=== PATIENT | female | born 1950 | race Two or more races ===

== ENCOUNTER 2018-09-11 18:24 | Emergency (ER) | payer OTHER, BC ==
[~2018-09-11] VITALS: Ht 165.1 cm; Wt 81.6 kg
[2018-09-11 18:44] VITALS: Ht 165.1 cm; Wt 81.6 kg
[2018-09-11 19:44] VITALS: BP 139/80
== END 2018-09-11 19:44 | disposition home or self-care (01) ==
LOC: ED 18:24
DX: H11.31 Conjunctival hemorrhage, right eye (principal)

== ENCOUNTER 2018-12-25 06:09 | Day surgery (SDC) | payer OTHER, BC ==
[~2018-12-25] VITALS: Ht 165.1 cm; Wt 78.5 kg
[2018-12-25 06:33] VITALS: BP 123/70
[2018-12-25 11:38] VITALS: BP 120/74
== END 2018-12-25 09:55 | disposition home or self-care (01) ==
LOC: GI 06:09 → OR 07:30 → GI 09:55
DX: K29.50 Unspecified chronic gastritis without bleeding (principal); K21.0 Gastro-esophageal reflux disease with esophagitis; K31.89 Other diseases of stomach and duodenum; M19.90 Unspecified osteoarthritis, unspecified site; Z79.899 Other long term (current) drug therapy; Z79.01 Long term (current) use of anticoagulants; Z87.59 Personal history of other complications of pregnancy, childbirth and the puerperium; Z98.890 Other specified postprocedural states
CPT/HCPCS: 43235; J1200; J1610; J2250; J2310; J3010; J3490

== ENCOUNTER 2019-02-03 11:14 | Inpatient (IN) | payer OTHER, BC ==
[~2019-02-03] VITALS: Ht 165.1 cm; Wt 74.9 kg
[2019-02-03 11:15] VITALS: Ht 165.1 cm; Wt 74.9 kg
--- NOTE | 2019-02-03 11:21 | NUR ---
PT PLACED ON BIPAP 10/5 BACK UP RATE-12. FIO2 .90. SATS ARE 96% AFTER PT PLACED ON BIPAP. DR MUSE AT BEDSIDE. PT SAYS SHE HAS PNEUMOTHORAX ON LEFT SIDE. PT APPEARS TO HAVE DRAIN ON LEFT SIDE AND IS BEING TREATED FOR IT. WILL DO ABG SOON. NO SKIN BREAKDOWN. TIGHT SEAL WITH BIPAP MASK.
--- NOTE | 2019-02-03 11:25 | NUR ---
PER MEDIC PT WAS AT WHEN AND STARTED TO FEEL SOB AROUND 0900. PT RECENTLY HAD A PNUEMOTHORAX SURGERY SUNDAY AT [facility] [place]. PER MEDIC PT HAS HX OF LUNG CANCER. PER MEDIC HOME HEALTH NURSE WAS AT HOME AND PT WAS STATING AT 52% AND WAS NOT ABLE TO INCREASE SPAO2. PER PT SHE IS ON HOME O2 BUT DOES NOT KNOW THE LITERS. PER PT SHE ALSO HAS PNUEMONIA. PT STS THAT SHE IS HAVING STERNAL PRESSURE CHEST PAIN AT THIS TIME THAT IS NON RADIATING. PT DENIES ANY NUMBNESS OR TINGLING. PER MEDIC BG 360. MEDIC PLACED PT ON CPAP. NOTED CHELA WITH CHEST TUBE FROM SURGERY PNUEMOTHORAX. PT STS THAT SHE IS HAVING A HEADAHCE AT THIS TIME. RESP AT BEDSIDE. DR. MUSE AT BEDSIDE. VSS. WILL CONTINUE TO MONITOR.
[2019-02-03 11:29] LABS: BASOPHIL % 0.1 % (0-2); PLATELET COUNT 291 x10^3mcL (130-400)
[2019-02-03 11:37] LABS: RED CELL DISTRIBUTION WIDTH 15.3 % (11.5-14.5)
[2019-02-03 11:55] LABS: CALCIUM 10.3 mg/dL (8.5-10.1); CARBON DIOXIDE 26.1 mmol/L (21-32); CREATININE SERUM 1.1 mg/dL (0.6-1.0); POTASSIUM SERUM 4.8 mmol/L (3.5-5.1)
--- NOTE | 2019-02-03 11:55 | NUR ---
DR. MUSE AT BEDSIDE FOR NUMBING SITE FOR CHEST TUBE.
--- NOTE | 2019-02-03 11:57 | NUR ---
PT MEDICATED WITH PROPOFOL 50MG IVP GIVEN BY DR MUSE
[2019-02-03 12:00] LABS: ALBUMIN 3.4 g/dL (3.4-5.0); BILIRUBIN TOTAL 0.6 mg/dL (0.20-1.00)
[2019-02-03 12:02] LABS: TOTAL PROTEIN, SERUM 8.3 g/dL (6.4-8.2)
--- NOTE | 2019-02-03 12:04 | NUR ---
CHEST TUBE INSERTION COMPLETED DR MUSE SUTURING SITE. PT REMAINS ON FULL CM VSS SINUS TACH. WILL CONTINUE TO MONITOR
--- NOTE | 2019-02-03 12:15 | NUR ---
XRAY AT [facility].
--- NOTE | 2019-02-03 12:23 | NUR ---
CHEST TUBE IN PLACE SUCTION IS APPLIED BUBBLING NOTED IN CHAMBER. NO OUTPUT NOTED AT THIS TIME. VSS. WILL CONTINUE TO MONITOR.
--- NOTE | 2019-02-03 12:43 | NUR ---
LAB AT [facility]. RESP AT BEDSIDE FOR BI PAP REMOVAL.
--- NOTE | 2019-02-03 12:47 | NUR ---
DR. MUSE AT BEDSIDE DUE TO PT BEING TAKEN ODD BI PAP.
--- NOTE | 2019-02-03 12:55 | NUR ---
PT ABLE TO ANSWER QUESTIONS. PT IS ALERT AND ORIENTED, SPEAKING IN CLEAR AND FULL SENTENCES. SON AT BEDSIDE. RESPIRATIONS ARE LABORED DR. MUSE MADE AWARE. PT ON 5L NC AT THIS TIME. WILL CONTINUE TO MONITOR. RESP COMING WITH POSITIVE PRESSURE MASK.
--- NOTE | 2019-02-03 13:05 | NUR ---
RESP AT BEDSIDE FOR HIGH PRESSURE MASK.
--- NOTE | 2019-02-03 13:15 | NUR ---
HIGH FLOW O2 PLACED BY RESPIRATORY. VSS. WILL CONTINUE TO MONITOR.
--- NOTE | 2019-02-03 13:15 | NUR ---
PLACED ON HIGH FLOW NC 35L 50% FIO2. SPO2:93% INCREASED TO 45L 55% FIO2 DUE TO DESATURATION. SPO2:93%
--- NOTE | 2019-02-03 13:38 | NUR ---
PT STS THAT SHE FEELS BETTER. PT STS THAT SHE HAS MILD PAIN. DR. MUSE MADE AWARE. VSS. PT ON HIGH FLOW NC O2. WILL CONTINUE TO MONITOR.
[2019-02-03] MEDS ORDERED: AMITRIPTYLINE H25 MG PO (13:51)
[2019-02-03] MEDS ORDERED: PANTOPRAZOLE SO40 M1 PO (13:51)
[2019-02-03] MEDS ORDERED: APAP/HYDROCODON1 T13 (13:51)
--- NOTE | 2019-02-03 14:07 | NUR ---
PT BEING TRANSPORTED TO ICU WITH NURSE WHITLEY URBANO AND EMT CHRIS. CHOWDHURY
[2019-02-03 14:12] LABS: CHOLESTEROL/HDL RATIO 4.1; MAGNESIUM 2.1 mg/dL (1.8-2.4); PHOSPHOROUS 3.5 mg/dL (2.5-4.9)
[2019-02-03 14:19] LABS: FREE T4 1.24 ng/dL (0.76-1.46); FREE THYROXINE INDEX 3.2 ug/dL (1.4-4.5); T4(THYROXINE) 10.6 ug/dL (4.7-13.3)
[2019-02-03 14:22] LABS: T3 TOTAL 0.82 ng/mL
[2019-02-03 14:38] VITALS: BP 122/67
[2019-02-03 15:47] VITALS: BP 111/69
[2019-02-03 17:00] VITALS: BP 111/69
--- NOTE | 2019-02-03 19:00 | NUR ---
REPORT GIVEN TO MEJIA URBANO. ALL QUESTIONS ANSWERED AND ADDRESSED. RN TO ASSUME CARE.
--- NOTE | 2019-02-03 19:05 | NUR ---
RECEIVED REPORT FROM ALISSA URBANO. ASSUMING ALL CARE
[2019-02-03 19:20] VITALS: BP 113/60
--- NOTE | 2019-02-03 19:20 | NUR ---
RECEIVED PT SITTING UP IN BED. PT IS A/OX4. SPEECH IS CLEAR. ABLE TO MAKE NEEDS KNOWN/FOLLOW SIMPLE COMMANDS. BREATHING IS EVEN AND SHALLOW. PT ON HIGH FLOW @ 45 LITERS, 80% FIO2. LUNGS SOUND CLEAR TO BUL AND DIMIN TO BLL. SYMMETRICAL CHEST EXPANSION NOTED. THORAVENT TO R UPPER CHEST NOTED. RIGHT SIDED CHEST TUBE INTACT/SECURED, DRESSING CDI, CONNECTED TO LIS, DRAINING SEROSANGUINOUS DRAINAGE. S1/S2 HEART SOUNDS AUSCULTATED. CHEST WALL EQUAL AND SYMMETRICAL. HR 105 BP 113/60, MAP 77. PALPABLE PULSES X4 EXTREMITIES. SKIN IS WARM AND DRY. NO EDEMA NOTED. RAC AND LH IV IN PLACE WITH NO S/S OF INFILTRATION NOTED. VANCOMYCIN INFUSING @ 100 ML/HR. CAP REFILL <3 SECS. PT NPO. PT VOIDS FREELY VIA BEDPAN. NO VAGINAL DISCHARGE OR LABIAL EDEMA NOTED. SKIN IS INTACT. PT ASSISTED TO REPOSITION Q2H AND PRN FOR COMFRT. PT IS CALM AND COOPERATIVE. FAMILY AT BEDSIDE. BED IN LOW POSITION. CALL LIGHT IN REACH. WILL CONT TO MONITOR
[2019-02-03 19:45] LABS: UA SPECIFIC GRAVITY >=1.030 (1.005-1.035); microscopic required? YES; urine erythrocyte NEGATIVE (NEGATIVE)
[2019-02-03 19:59] LABS: AMPHETAMINE QUAL UR NONE DETECTED (See below)
[2019-02-03 23:00] VITALS: BP 133/70
--- NOTE | 2019-02-03 23:00 | NUR ---
PT C/O 7/10 ACHING BACK PAIN. PT MEDICATED WITH MORPHINE IVP PER EMAR. WILL CONT TO MONITOR
--- NOTE | 2019-02-03 23:06 | NUR ---
AXILLARY TEMP 100.4. PT MEDICATED WITH TYLENOL 650 MG PER EMAR. COOLING MEASURES IN PLACE. WILL CONT TO MONITOR
--- NOTE | 2019-02-04 02:00 | NUR ---
FAYE RT AT BEDSIDE. FIO2 TITRATED TO 75%. PT'S CURRENT O2 SATURATION 92%. WILL CONT TO MONITOR
[2019-02-04 03:09] VITALS: BP 128/62
--- NOTE | 2019-02-04 03:09 | NUR ---
AXILLARY TEMP 100.0. COOLING MEAUSRES REMAIN IN PLACE. WILL CONT TO MONITOR.
--- NOTE | 2019-02-04 03:40 | NUR ---
FIO2 TITRATED TO 65% BY FAYE RILEY. PT'S CURRENT O2 SATURATION 93%. WILL CONT TO MONITOR
[2019-02-04 04:09] LABS: BASOPHIL % 0 % (0-2); PLATELET COUNT 251 x10^3mcL (130-400); RED CELL DISTRIBUTION WIDTH 15.5 % (11.5-14.5)
[2019-02-04 04:27] LABS: CARBON DIOXIDE 28.6 mmol/L (21-32); CHLORIDE SERUM 110 mmol/L (98-107); CREATININE SERUM 0.6 mg/dL (0.6-1.0); GFR1 > 60 mL/min; GLUCOSE SERUM 119 mg/dL (74-106); MAGNESIUM 2.3 mg/dL (1.8-2.4); PHOSPHOROUS 2.8 mg/dL (2.5-4.9); POTASSIUM SERUM 4.3 mmol/L (3.5-5.1); SODIUM SERUM 145 mmol/L (136-145)
--- NOTE | 2019-02-04 05:18 | NUR ---
FIO2 TITRATED TO 60% BY FAYE RILEY
--- NOTE | 2019-02-04 06:06 | NUR ---
X-RAY TECH AT BEDSIDE
[2019-02-04 07:00] VITALS: BP 119/65
--- NOTE | 2019-02-04 07:00 | NUR ---
RECIEVED PT AWAKE AND ALERT. ABLE TO FOLLOW COMMANDS. SPEECH IS CLEAR AND APPROPRIATE FOR AGE. NO FACIAL DROOP NOTED. SMILE IS SYMMETRICAL. PERRL. EENT FREE OF DISCHARGE. PT REMAINS ON HIGH-FLOW @ 45L AND 60% FIO2. BREATHING SHALLOW. SYMMETRICAL CHEST WALL EXPANSION NOTED. DENIES SOB. THORAVENT TO R UPPER CHEST NOTED, DRESSING CDI. R SIDED CHEST TUBE INTACT, TO SUCTION, DRESSING CDI. NSR ON FILBERT GROWER. DENIES CP. S1/S2 HEART SOUNDS AUDIBLE. NO MURMURS. MOD PALPABLE PULSES X4. CAP REFILL <3 SEC. NO EDEMA. SKIN IS WARM/DRY TO TOUCH, GLORIA/BROWN IN COLOR TO BUE AND BLE. PIV TO R AC AND L HAND INTACT, PORTS PATENT, DRESSINGS CDI, BOTH SALINE-LOCKED. ABD IS SOFT, SYMMETRICAL, ROUNDED, AND NONTENDER. NO BM. PT DENIES ABD PAIN OR N/V. NO VAGINAL BLEEDING OR DISCHARGE. CALL LIGHT WITHIN REACH, BED IN LOWEST POSITION, X3 SIDE RAILS UP FOR PT'S SAFETY.
--- NOTE | 2019-02-04 07:00 | NUR ---
RECIEVED REPORT FROM MEJIA URBANO. UPDATES PROVIDED. WILL ASSUME CARE.
--- NOTE | 2019-02-04 07:05 | NUR ---
REPORT GIVEN TO BECKA URBANO. ALL QUESTIONS/CONCERNS ADDRESSED. ENDORSING ALL CARE
--- NOTE | 2019-02-04 08:45 | NUR ---
PT COMPLAINING OF PAIN FROM THE LAC IV SITE. IV REMOVED AT THIS TIME AND DRESSING APPLIED, CDI.
--- NOTE | 2019-02-04 08:56 | NUR ---
ECHOCARDIOGRAM PENDING-HAVING BREAKFAST
--- NOTE | 2019-02-04 09:00 | NUR ---
ECHO AT BEDSIDE.
--- NOTE | 2019-02-04 10:32 | NUR ---
DR. JC AND RESIDENTS AT BEDSIDE ASSESSING PT. ALL QUESTIONS ANSWERED AND ADDRESSED. UPDATES PROVIDED. D-DIMER ORDERED TO RULE OUT PE. NO OTHER NEW ORDERS AT THIS TIME.
[2019-02-04 11:00] VITALS: BP 137/56
--- NOTE | 2019-02-04 14:23 | NUR ---
PIV 18G INSERTED TO LAC, GOOD BLOOD RETURN, FLUSHES WELL. NO S/S OF INFILTRATION.
[2019-02-04 15:00] VITALS: BP 144/79
--- NOTE | 2019-02-04 16:24 | NUR ---
CONTACTED DR. VICTOR TO INFORM HIM ABOUT THE PT'S CT ANGIO PULMONARY DUE TO THE PT'S ELEVATED D-DIMER. DR. VICTOR STATED THAT THE CT SCAN WASN'T NECESSARY HE BELIEVES THAT THE STAGE [address] IS THE CAUSE[address]. PATINO NOTIFIED AND HAS CANCELLED THE CT ANGIO-PULM.
--- NOTE | 2019-02-04 18:46 | NUR ---
PT SITTING UP IN BED EATING DINNER. PT REMAINS ON HIGH FLOW AT 45L, 80% FIO2. SHALLOW BREATHING NOTED. SYMMETRICAL CHEST WALL EXPANSION. NO FLAIL CHEST NOTED. NO S/S OF RESP DISTRESS AT THIS TIME. SINUS TACHY ON ALMOND PASTE MOLDER. DENIES CP. PIV TO L HAND AND L AC INTACT, PORTS PATENT, DRESSINGS CDI. BED IN LOWEST POSITION, X3 SIDE RAILS UP, CALL LIGHT WITHIN REACH.
--- NOTE | 2019-02-04 19:10 | NUR ---
RECEIVED REPORT FROM ALISSA URBANO. ASSUMING ALL CARE
[2019-02-04 19:25] VITALS: BP 124/55
--- NOTE | 2019-02-04 19:25 | NUR ---
RECEIVED PT LAYING IN BED. PT IS A/OX4. SPEECH IS CLEAR. ABLE TO MAKE NEEDS KNOWN/FOLLOW COMMANDS. BREATHING IS EVEN AND SHALLOW. PT TACHYPNEIC ON EXERTION. PT ON HIGH FLOW 45 LPM, 80% FIO2. SYMMETRICAL CHEST EXPANSION NOTED. THORAVENT TO R UPPER CHEST NOTED. RIGHT SIDED CHEST TUBE INTACT/SECURED, DRESSING CDI, CONNECTED TO LIS WITH SEROSANGUIOUS DRAINAGE NOTED. LAC IV IN PLACE WITH NO S/S OF INFILTRATION NOTED. VANCOMYCIN INFUSING @ 167 ML/HR. SCD IN PLACE. SKIN IS INTACT. AXILLARY TEMP 101.1, PT MEDICATED WITH TYLENOL PER EMAR, COOLING MEASURES IN PLACE. PT IS CALM AND COOPERATIVE. FAMMILY AT BEDSIDE. BED IN LOW POSITION. CALL LIGHT IN REACH. WILL CONT TO MONITOR.
--- NOTE | 2019-02-04 19:26 | NUR ---
AXILLARY TEMP 101.1. PT MEDICATED WITH TYLENOL 650 MG PO PER EMAR. COOLING MEASURES IN PLACE. WILL CONT TO MONITOR
--- NOTE | 2019-02-04 22:23 | NUR ---
PT ASSITED TO BED GRESHAM. PT VOIDED 500 ML OF RAINA COLORED URINE. PT HAD A SMALL FORMED BROWM BM. PERICARE PROVIDED
[2019-02-04 23:10] VITALS: BP 117/87
--- NOTE | 2019-02-04 23:10 | NUR ---
AXILLARY TEMP 100.0. COOLING MEASURES REMAIN IN PLACE.
--- NOTE | 2019-02-05 01:26 | NUR ---
AXILLARY TEMP 100.5. PT MEDICATED WITH TYLENOL 650 MG PER EMAR. COOLING MEASURES REMAIN IN PLACE. WILL CONT TO MONITOR.
[2019-02-05 03:10] VITALS: BP 130/50
--- NOTE | 2019-02-05 03:24 | NUR ---
PT C/O ACHING BACK PAIN RATED 7/10. PT MEDICATED WITH MORPHINE IVP PER EMAR. WILL CONT TO MONITOR
--- NOTE | 2019-02-05 04:44 | NUR ---
CORRECTIONAL MEDICINE PHYSICIAN AT BEDSIDE FOR AM LAB DRAW
[2019-02-05 05:23] LABS: BASOPHIL % 0.1 % (0-2); PLATELET COUNT 243 x10^3mcL (130-400)
[2019-02-05 05:29] LABS: RED CELL DISTRIBUTION WIDTH 15.5 % (11.5-14.5)
[2019-02-05 05:44] LABS: CALCIUM 8.6 mg/dL (8.5-10.1); CARBON DIOXIDE 31.8 mmol/L (21-32); CHLORIDE SERUM 107 mmol/L (98-107); CREATININE SERUM 0.6 mg/dL (0.6-1.0); GFR1 > 60 mL/min; GLUCOSE SERUM 126 mg/dL (74-106); PHOSPHOROUS 3.1 mg/dL (2.5-4.9); POTASSIUM SERUM 3.9 mmol/L (3.5-5.1); SODIUM SERUM 144 mmol/L (136-145)
--- NOTE | 2019-02-05 07:05 | NUR ---
REPORT GIVEN TO RADHA URBANO. ALL QUESTIONS/CONCERNS ADDRESSED. ENDORSING ALL CARE
--- NOTE | 2019-02-05 07:29 | NUR ---
RECEIVED PT'S REPORT FROM LEAVING NURSE. PT SITTING ON BED WITH HIGH SITTING POSITION. PT IS EASILY AROUSED BY VERBAL STIMULI. PT BREATHING ON HIGH FLOW O2 AT FIO2 67%, O2 SAT AROUND 90%. R UPPER CHEST THORAVENT COVERED. R CHEST TUBE SITE SEALED AND SEURED, CONNECTED TO WALL LOW INTERMITENT SUCTION, SERO BLOOD TINGED DRAINAGE NOTED. ANTIBIOTIC VANCO IS INFUSING.
[2019-02-05 08:00] VITALS: BP 124/53
--- NOTE | 2019-02-05 09:40 | NUR ---
DR JC AND RESIDENTS AT BEDSIDE FOR ROUNDS. POC DISCUSSEDD WITH PATIENT. ALL QUESTIONS AND CONCERNS ADDRESSED.
--- NOTE | 2019-02-05 11:11 | NUR ---
ASSISTED PT TO USE BEDPAN, PT GO TO TACHYPENIC, O2 DESATING TO 80%, HR AROUND 120S. INCREASES HI-FLOW FIO2 TO 75% AT THIS TIME TO MAINTAIN O2 SAT > 86%.
--- NOTE | 2019-02-05 11:39 | NUR ---
1. Recommend Ensure Enlive BID along with puree diet. Paged Dr. Kingston, waiting for call back.
--- NOTE | 2019-02-05 11:39 | NUR ---
Initial Nutrition Assessment: IC08/A NORMAN NORTON HR Dx: Pneumothorax, lung cancer PMHx: Guillain Hornick syndrome, lung cancer (recently diagnosed), interstitial cystitis, Osteoarthritis PSHx: Labs: BG 126H, WBC 11.8H Meds: Colace, morphine, norco, vancomycin, Zofran, zosyn Diet: Puree diet PO Intake: (02/04) breakfast, lunch 100% Ht: 165.1 cm (65") Wt: 74.5 kg (164#) BMI: 27.3 kg/m2 Bed scale: 74.5 kg IBW: 125# (57 kg) %IBW: 131 UBW: 181# Age: 68/F Food Allergies: NKFA Skin: intact Ignacio: 18 Edema: none GI: Last BM: none Trigger: admitted w/ risk diagnosis Per H&P, Pt is a 68-year-old Female with history of lung cancer (recently diagnosed), intersitital cystitis was brought in to the ED by EMS for evaluation of acute onset of shortness of breath and chest discomfort. Patient had lung biopsy recently at [facility] and she developed pneumothorax post biopsy and had pigtail placed on 01/31/19 at [facility]. RDN Visit (02/05): Patient was alert and oriented and breathing on HI-Flow. Patient said that she ate about 80-90% breakfast this morning. She said that she does not want pepper in her food and does not want coffee. She wants Herbal tea instead. Patient mentioned that she follows a diet for interstitial cyctitis and avoids citrus, tomatoes and food additives. Patient has been drinking Ensure. Per progress note (02/05), pt is on Vanco 1 gm daily, IV zosyn 3.375 mg Q6, Rt Chest tube placed. Problem with: N/V/D/C: none at this time Problems with: Chewing/Swallowing: yes, on puree Current appetite: good Recent wt change: lost 17# x 4 months %wt change: 9% Vitamin/Supplement use: none Special diet at home: avoids citrus, tomato and food additives Physical activity: sedentary Nutrition education given: PO was encouraged. Food-drug interactions: Colace- high fiber w/2975-9993 ml fluids Education given: yes Estimated Nutritional Needs Based on current body weight 74.5 kg Energy: 5094-6379 kcal/d (25-30 kcal/kg) Protein: 89-104 g/d (1.2-1.4g/kg)- cancer Fluid: 2010-1557 ml/d (1 ml/kcal) or per doctor Nutrition Diagnosis 1. Increased nutrient needs related to lunch cancer, pneumothorax as evidenced by estimated calorie and protein needs. Intervention 1. Recommend Ensure Enlive BID along with puree diet. Paged Dr. Kingston, waiting for call back. Monitor/Evaluate Goal: PO intake at least 75% of estimated needs Monitor: PO intake, Labs, GI function F/U in 3-5 days as moderate risk 02/08-
[2019-02-05 12:35] VITALS: BP 139/64
--- NOTE | 2019-02-05 12:52 | NUR ---
DR. CEDILLO BEDSIDE ASSESSED PT'S CHEST TUBE SITE. PT'S CONDITION UPDATED.
--- NOTE | 2019-02-05 14:47 | NUR ---
PT IS TAKEN FOR CT HEAD BY NURSE HARLEEN. DISCONNECT CHEST TUBE FROM WALL SUCTION AND CLAMP PER ORDER. MORPHINE 2MG GIVEN TO MANAGE PT'S PAIN ON CHEST TUBE SITE AND BACK. PT IS TRANSERED WITH NON-REBREATHER MASK WITH RT JOSE DANIEL MILLS.
--- NOTE | 2019-02-05 15:15 | NUR ---
DR FLORES AT BEDSIDE AND MADE AWARE PATIENT CONTINUES IN A-FIB WITH RVR.
--- NOTE | 2019-02-05 15:30 | NUR ---
PT BACK FROM CT HEAD. CHEST TUBE CONNECTED BACK TO LOW INTERMITTENT WALL SUNCTION, RISE AND FALL NOTED IN WATER CHAMBER. CHEST TUBE SITE DRESSING SECURED AND SEALED. PT BREATHING ON HI-FLOW FIO2 70%, RR 22, O2 SAT 90-93%. PT STATED PAIN WITHIN TOLERANCE. WILL CONTINUE TO MONITOR.
[2019-02-05 15:38] VITALS: BP 119/57
--- NOTE | 2019-02-05 18:07 | NUR ---
PT'S FRIENDS AT BEDSIDE. PT IS EATING DINNER, DENIED SOB. BREATHING ON HI-FLOW FIO2 70%, O2 SAT 94%. CHEST TUBE TOTAL DRAIN 75ML DURING SHIFT. CHEST TUBE SITE IS SEALED SECURED BY PRESSURE DRESSING. ANTIBIOTIC ZOSYN IS INFUSING. WILL ENDORSE PT'S CARE TO COMING NURSE.
--- NOTE | 2019-02-05 19:00 | NUR ---
RECIEVED REPORT FROM YOLIE GARCIA. ALL CONCERNS ADDRESSED. POC DISCUSSED. SEE SHIFT ASSESSMENT FOR ASSESSMENT.
[2019-02-05 19:42] VITALS: BP 124/60
[2019-02-05 23:14] VITALS: BP 117/84
--- NOTE | 2019-02-06 | NUR ---
PT W/ NO ACUTE CHANGES. WILL CONT TO MONITOR.
--- NOTE | 2019-02-06 02:11 | NUR ---
PT W/ 250ML LIGHT YELLOW URINE. NO ACUTE CHANGES. WILL ENDORSE.
[2019-02-06 03:05] VITALS: BP 129/67
--- NOTE | 2019-02-06 04:22 | NUR ---
PT CLEANED AND LINENS CHANGED. ADDITIVE SEALAGE BANDAGE TO CHEST TUBE ADDED FOR SUPPORT AND STRENGTHENING PITT. PT TOLERATED WELL NO S/S OF DISTRESS. WILL ENDORSE.
--- NOTE | 2019-02-06 04:40 | NUR ---
ADVERTISING DISPATCH CLERKS SUPERVISOR @ BEDSIDE FOR AM LABS.
[2019-02-06 05:00] LABS: PLATELET COUNT 268 x10^3mcL (130-400)
[2019-02-06 05:06] LABS: BASOPHIL % 0 % (0-2); RED CELL DISTRIBUTION WIDTH 15.1 % (11.5-14.5)
[2019-02-06 05:12] LABS: CARBON DIOXIDE 29.4 mmol/L (21-32); CHLORIDE SERUM 106 mmol/L (98-107); CREATININE SERUM 0.7 mg/dL (0.6-1.0); GFR1 > 60 mL/min; GLUCOSE SERUM 185 mg/dL (74-106); MAGNESIUM 2.1 mg/dL (1.8-2.4); PHOSPHOROUS 3.4 mg/dL (2.5-4.9); POTASSIUM SERUM 4.9 mmol/L (3.5-5.1); SODIUM SERUM 144 mmol/L (136-145)
--- NOTE | 2019-02-06 07:30 | NUR ---
RECEIVED PT'S REPORT FROM LEAVING NURSE. PT IS RESTING ON BED, BREATHING ON HI-FLOW 40L, FIO2 70% EVEN SHALLOW. O2 SAT AROUND 90%. PT IS AROUSED WITH VERBAL RESPONSE. R CHEST TUBE CONNECTED TO WAL LOW INTERMITTENT SUCTION, RISE AND FALL NOTED IN WATER CHAMBER. CHEST TUBE SITE SEALED /SECURED. WILL CONTINUE TO MONITOR.
[2019-02-06 08:00] VITALS: BP 126/67
--- NOTE | 2019-02-06 10:10 | NUR ---
DR. JC MADE MORNING ROUND WITH MEDICAL TEAM. PT'S AT BED SIDE. PT'S CURRENT CONDITION UPDATED. PT AWARE ABOUT TREATMENT PLAN.
--- NOTE | 2019-02-06 11:41 | NUR ---
DR VICTOR AT BEDSIDE TO ASSESS PATIENT. UPDATES PROVIDED BY NURSING WITH POC DISCUSSED.
--- NOTE | 2019-02-06 11:42 | NUR ---
PER DR. VICTOR'S ORDER, TURNED OFF CHEST TUBE WALL LOW INTERMITTENT SUCTION, REMAINING WATER SEAL. PT WILL HAVE CXR AFTER ONE HOUR. ONCOLOGIST CORNELIUS BOONE AT BED SIDE TALKED TO PT ABOUT TRANSFER HER TO [facility] IF DR. VICTOR THINKS PT IS SAFE FOR TRANSFER.
--- NOTE | 2019-02-06 11:53 | NUR ---
CORNELIUS LUIS TALKED TO DR. VICTOR. DR. VICTOR CONFIRMED PT IS OK TO TRANSFER. RESUME PT CHEST TUBE BACK TO WALL LOW INTERMITTENT SUCTION. RESIDENT CAREY AWARE AND WILL ARRANGE TO PT'S TRANSFER.
[2019-02-06 12:03] VITALS: BP 127/63
--- NOTE | 2019-02-06 12:06 | NUR ---
PER DR VICTOR ORDER, IF PATIENT TRANSFERRED, REMOVED PATIENT FROM HI-FLOW AND PLACE ON BIPAP 10/5, FIO2 60%. TITRATE FIO2 TO REMAIN ABOVE 90%. CHEST TUBE IS TO REMAIN ON SUCTION DURING TRANSPORT.
--- NOTE | 2019-02-06 12:20 | NUR ---
SPOKE WITH DR VICTOR REGARDING PATIENT TRANSFER. DR VICTOR STATED THAT DR LINDER WILL BE ACCEPTING PHYSCIAN AT [facility] WITH AN ICU BED. IF POSSIBLE, DR LINDER WOULD LIKE PATIENT TRANSPORTED ON FACE MASK AT 100%. IF UNABLE TO TOLERATE, OKAY TO TRANSFER ON BIPAP.
[2019-02-06 12:57] VITALS: BP 127/63
[2019-02-06 14:42] VITALS: BP 125/73
--- NOTE | 2019-02-06 14:56 | NUR ---
PT IS GOING TO TRANSFER TO [facility] ICU BED 7. PT'S REPORT GIVEN TO [facility] NURSE [facility]. QUESTIONS AND CONCERNS ADDRESSED. PT WILL BE TRANFER AT 1530PM BY BIPAP BEGINING 60%, TITRATE UP TO MAINTAIN O2 SAT > 90%. PT'S AT BEDSIDE. ATIVAN GIVEN PER ORDER FOR PT'S ANXIETY. WILL GET PT READY.
--- NOTE | 2019-02-06 15:52 | NUR ---
[facility] PICKED UP PT TO TRANSFER TO [facility]. PT IS ON NON REBREATHER, O2 SAT AT 89%. PT'S REPORT GIVEN TO [facility] NURSE. CALLED [facility] ICU NURSE AND MADE THEM AWARE PT IS ON THE WAY TO [facility]. PT'S WILL FOLLOW AMBULANCE.
== END 2019-02-06 15:51 | disposition short-term general hospital (02) | DRG 871 ==
LOC: ED 11:14 → IC 13:16
PROVIDERS: Emergency Medicine; ADMIT Internal Medicine
PROC: 0W9930Z Drainage of Right Pleural Cavity with Drainage Device, Percutaneous Approach (ICD-10-PCS; principal; 2019-02-03)
DX: A41.9 Sepsis, unspecified organism (principal); J18.9 Pneumonia, unspecified organism; J93.0 Spontaneous tension pneumothorax; J96.01 Acute respiratory failure with hypoxia; R65.21 Severe sepsis with septic shock; C34.90 Malignant neoplasm of unspecified part of unspecified bronchus or lung; N30.10 Interstitial cystitis (chronic) without hematuria; E83.52 Hypercalcemia; R74.0 Nonspecific elevation of levels of transaminase and lactic acid dehydrogenase [LDH]; E78.5 Hyperlipidemia, unspecified; M17.0 Bilateral primary osteoarthritis of knee; Z68.32 Body mass index [BMI] 32.0-32.9, adult
CPT/HCPCS: 32551; 36600; 82962; 83880; 84439; 85378; C1729; G0378; J0696; J1956; J2001; J2060; J2270; J2405; J2543; J2704; J2920; J3010; J3370; J3490; J7030; J7060; Q0092; Q9967